=== PATIENT | female | born 1950 | race Caucasian/White ===

== ENCOUNTER → 2016-07-10 14:28 | Outpatient (CLI) | payer BC ==
[2016-01-21 06:49] VITALS: BMI 26.6
[~2016-07-10 14:28] MED LIST: ASPIRIN325 MG PO; CALTRATE-600600 MG PO; CARDIZEM CD180 MG PO; CRESTOR10 MG PO; HYDROCODONE-APA1 TAB PO; KLOR-CON M2020 MEQ PO; LASIX40 MG PO; LIPITOR40 MG PO; LODINE400 MG PO; MULTI-DAY VITAM1 TAB PO; PLAVIX75 MG PO; PREMARIN0.625 MG PO; PRILOSEC20 MG PO; PROZAC20 MG PO; TIROSINT125 MCG PO; VITAMIN D250000 UNIT PO; VITAMIN E PO
== END | disposition home or self-care (01) ==
LOC: D.MAMMO 07-07 10:45
DX: Z12.31 Encounter for screening mammogram for malignant neoplasm of breast (principal)

== ENCOUNTER → 2016-07-10 16:18 | Outpatient (CLI) | payer BC ==
[2016-01-21 06:49] VITALS: BMI 26.6
== END | disposition home or self-care (01) ==
LOC: D.MAMMO 12:00
DX: R92.8 Other abnormal and inconclusive findings on diagnostic imaging of breast (principal)

== ENCOUNTER → 2016-07-12 08:28 | Outpatient (CLI) | payer BC ==
[2016-01-21 06:49] VITALS: BMI 26.6
== END | disposition home or self-care (01) ==
LOC: D.US 08:28
DX: R92.2 Inconclusive mammogram (principal)

== ENCOUNTER 2017-03-14 12:05 | Day surgery (SDC) | payer BC ==
[~2017-03-14] VITALS: Ht 157.5 cm; Wt 70.0 kg
--- NOTE | ~2017-03-14 | OP ---
PATIENT NAME: BARBY CUELLAR MEDICAL RECORD: [id number] :48 LOCATION:[facility] ADMISSION DATE: SURGEON: MONICA SCHERER DO DATE OF OPERATION: 03/14/2017 PROCEDURE: Colonoscopy. INDICATIONS FOR PROCEDURE: Colorectal cancer screening. SCOPE: Olympus video pediatric colonoscope. MEDICATIONS: Propofol 600 mg IV per anesthesia. WITHDRAWAL TIME: 10 minutes. ESTIMATED BLOOD LOSS: None. COMPLICATIONS: None. FINDINGS: Informed consent was given. The patient was made comfortable with the above medication. After reaching an adequate level of sedation by slow IV push, the patient was placed on her left side. A digital rectal examination was performed and revealed a skin tag from a previous hemorrhoid. He was otherwise normal. The endoscope was then advanced under direct visualization through the rectum to the terminal ileum. The scope was slowly withdrawn and the mucosa was carefully examined. The prep quality was good. There were no polyps visualized on today's examination. No diverticula were directly seen. Retroflexion was performed in the rectum with visualization of grade I nonbleeding internal hemorrhoids. The endoscope was completely withdrawn from the patient. The patient tolerated the procedure well and there were no complications. IMPRESSION: Grade I internal hemorrhoids, which were not bleeding. PLAN AND RECOMMENDATIONS: 1. Discharge home when recovery parameters are met. 2. High fiber diet. 3. Continue current medications. 4. Recall colonoscopy in 7-10 years. TRANSINT:[id number] Voice Confirmation ID: [id number] DOCUMENT ID: [id number] MONICA SCHERER DO at 1848 CC: [id number] DICTATION DATE: 03/14/17 1603 MORNING SHOW [place] PRODUCER: 03/14/17 1754 [facility] 03/14/17 [facility] [address] [id number]
[2017-03-14 13:44] VITALS: BP 140/76; Ht 157.5 cm; Wt 70.0 kg
[2017-03-14 13:45] LABS: BASOPHILS 0.3 % (0-2); EOSINOPHILS 0.3 % (0-7); HEMATOCRIT 35.9 % (36.0-48.0); HEMOGLOBIN 12.3 g/dL (12-16); IMMATURE GRANULOCYTES 0.3 % (0-5); LYMPHOCYTES 24.4 % (15-50); MCH 31.6 pg (26.0-34.0); MCHC 34.3 g/dL (31.0-37.0); MCV 92.3 fL (80.0-100.0); MEAN PLATELET VOLUME 9.5 fL (7.4-10.4); MONOCYTES 6.9 % (2-11); NEUTROPHILS 67.8 % (40-80); PLATELET COUNT 260 10x3/uL (130-400); RBC 3.89 10x6/uL (4.00-5.40); RDW 12.5 % (11.5-14.5); WBC 6.4 10x3/uL (4.8-10.8)
[2017-03-14 13:51] LABS: CALC OSMOLALITY 267 mosm/kg (275-300); CALCIUM 8.5 mg/dL (8.5-10.1); CARBON DIOXIDE 26.4 mmol/L (21.0-32.0); CHLORIDE - SERUM 100 mmol/L (98-107); CREATININE - SERUM 0.7 mg/dL (0.6-1.3); GLUCOSE 91 mg/dL (74-106); POTASSIUM - SERUM 4.1 mmol/L (3.5-5.1); SODIUM 135 mmol/L (136-145); UREA NITROGEN 8 mg/dL (7-18); eGFR NON AFRICAN AMERICAN 88 mL/min (90-120)
== END 2017-03-14 17:00 | disposition home or self-care (01) ==
LOC: D.OPS 12:05
PROVIDERS: Anesthesiology
DX: Z12.11 Encounter for screening for malignant neoplasm of colon (principal); E03.9 Hypothyroidism, unspecified; Z01.812 Encounter for preprocedural laboratory examination; K64.0 First degree hemorrhoids

== ENCOUNTER → 2017-05-10 12:07 | Outpatient (CLI) | payer BC ==
[2017-03-14 13:44] VITALS: BMI 28.2
--- NOTE | ~2017-05-10 | EC ---
PATIENT:BARBY CUELLAR DATE OF SERVICE: 05/10/17 SEX: F MEDICAL RECORD: [id number] DATE OF : 48 LOCATION:D.[facility] AGE OF PATIENT: 67 ADMISSION DATE: 05/10/17 REFERRING PHYSICIAN: INTERPRETING PHYSICIAN: RADHA DAVIS MD ECHOCARDIOGRAM REPORT ECHO CHARGES 4 ECHO COMPLETE CLINICAL DIAGNOSIS: ABN EKG,CHEST PAIN ECHOCARDIOGRAPHIC MEASUREMENTS (adult normal given) AC root (d.<3.7cm) 3.0 cm LV Septum d (<1.2 cm> 1.3 cm Valve Excursion 1.6 cm LV Septum (systole) 1.6 cm Left Atria (s.<4.0cm> 3.2 cm LVPW d(<1.2cm) 1.4 cm RV (d.<2.3cm) 3.8 cm LVPW (sytole) 1.5 cm LV diastole(<5.6CM) 3.9 cm MV E-F(>70mm/sec) cm LV systole 2.87 cm LVOT Diameter 1.8 cm MV exc.(>10mm) 1.6 cm Est.ejection fraction (50-75%) % Pericardial Effusion N DOPPLER: LVIT cm/sec A 93.0 cm/sec E 87.0 cm/sec LA cm/sec RVSP 35 mmHg LVOT 106 cm/sec AOP1/2T m/s Asc. Ao 131 cm/sec RVOT 83 cm/sec RA cm/sec PA 123 cm/sec AV Gradient Peak 6.86 mmHg AV Mean 3.07 mmHg AV Area 1.8 cm MV Gradient Peak 4.23 mmHg MV Mean 1.88 mmHg MV Area cm COMMENTS: Wood Floor Refinisher: Ml TENA Legal Instructor: Laurent Daivs TAPE# PACS DATE OF SERVICE: 05/10/2017 FINDINGS: 1. Left ventricular chamber size is within normal limits. Left ventricular systolic function is normal. Overall ejection fraction is estimated at 60%. 2. Left atrium, right atrium, and right ventricular chamber sizes are within normal limit. 3. Valvular structures have normal structure and motion. 4. Doppler interrogation reveals mild mitral regurgitation and mild tricuspid regurgitation. No other valvular insufficiency or stenosis. ECHOCARDIOGRAM REPORT [id number] BARBY CUELLAR 5. No evidence of pericardial effusion or left ventricular thrombus. TRANSINT:[id number] Voice Confirmation ID: [id number] DOCUMENT ID: [id number] RADHA DAVIS MD at 1153 CC: [id number] DICTATION DATE: 05/16/17 1229 AUDIOPROSTHOLOGIST: 05/16/17 1240 DEP CLI 05/10/17 [place] [id number]
== END | disposition home or self-care (01) ==
LOC: D.ECHO 12:07
DX: I44.0 Atrioventricular block, first degree (principal); R07.9 Chest pain, unspecified

== ENCOUNTER → 2018-01-01 19:34 | Outpatient (CLI) | payer BC ==
[2017-03-14 13:44] VITALS: BMI 28.2
== END | disposition home or self-care (01) ==
LOC: D.MAMMO 11:45
DX: Z12.31 Encounter for screening mammogram for malignant neoplasm of breast (principal)

== ENCOUNTER 2018-03-08 12:35 | Outpatient (CLI) | payer BC ==
[~2018-03-08] VITALS: Ht 157.5 cm; Wt 69.1 kg
--- NOTE | ~2018-03-08 | HEMODYNAMI ---
PATIENT:BARBY CUELLAR MEDICAL RECORD: [id number] : 48 LOCATION:[facility] ADMISSION DATE: 03/08/18 Generatedon:03/08/201816:18 Patient name: BARBY CUELLAR Patient #: [id number] SSN: DO B: 1950 Date of study: 03/08/2018 Page: Of Hemodynamic Procedure Report Patient Data Patient Demographics Procedure consent was obtained First Name: BARBY Gender: Female Last Name: POLO : 1950 Middle Initial: JESUS Age: 67 year(s) Patient #: [id number] Race: Unknown Additional ID: [id number] Contact details Address: [address] [place] [address] rd State: [place] City: [place] Zip code: [address] Past Medical History Allergies Allergen Reaction Date Comments Reported Other allergy 03/08/2018 Demerol Admission Admission Data Admission Date: 03/08/2018 Admission Time: 12:35 Lab Results Lab Result Date: 03/08/2018 Lab Result Time: 0:00 Biochemistry Name Units Result Min Max BUN mg/dl 27 --(----)-* 7 18 Creatinine mg/dl 1.1 --(--*-)-- 0.6 1.3 CBC Name Units Result Min Max Hemoglobin g/dl 16.1 --(--*-)-- 13.5 17.5 Procedure Procedure Types Cath Procedure Diagnostic Procedure [facility] w/Coron[facility] Procedure Description Procedure Date Procedure Date: 03/08/2018 Procedure Start Time: 16:07 Procedure End Time: 16:15 Procedure Staff Name Function Jose Davis MD Performing Physician Laurie Harding RT Monitor Lesley Vital RT Scrub David Almanzar RN Nurse Procedure Data Cath Procedure Fluoroscopy Diagnostic fluoroscopy Total fluoroscopy Time: 0.9 time: 0.9 min min Diagnostic fluoroscopy Total fluoroscopy dose: 170 dose: 170 mGy mGy Contrast Material Contrast Material Type Amount (ml) Isovue 300 31 Entry Location Entry Primary Successful Side Size Upsize Upsize Entry Closure Winn ccessful Closure Location (Fr) 1 (Fr) 2 (Fr) Remarks Device Remarks Radial Right 6 Fr Mechanical artery Short Compression Estimated blood loss: 10 ml Diagnostic catheters Device Type Used For End Catheter Placement DIAGNOSTIC Eaton 110cm 5 Procedure Fr catheter ([id number]) Procedure Complications No complications Procedure Medications Medication Administration Route Dosage Oxygen etCO2 Nasal cannula 2 l/min Lidocaine 2% added to field 20 Heparin Flush Bag added to field 2 bags (1000units/500ml NS) 0.9% NaCl I.V. 100 ml/hr Radial Cocktail I.A. 1 syringe (Verapomil 2mg/Nitro 400mcg/Heparin 1500units) Versed I.V. 2 mg Fentanyl I.V. 100 mcg Versed I.V. 2 mg Fentanyl I.V. 100 mcg Versed I.V. 2 mg Fentanyl I.V. 100 mcg Versed I.V. 1 mg Fentanyl I.V. 50 mcg Zofran I.V. 4 mg Hemodynamics Rest HGB: 16.1 (g/dl) Heart Rate: 73 (bpm) Pressure Samples Time Site Value (mmHg) Purpose Heart Use Rate(bpm) 16:09 LV 142/-6,1 Snapshot 87 16:09 AO 157/88(121) Pullback 90 16:09 LV 172/9,56 Pullback 90 Gradients Valve Time Site 1 Site 2 Mean SEP/DFP Peak To Heart Use (mmHg) (sec/min) Peak Rate (mmHg) (bpm) Aortic 16:09 LV AO 11 20 15 90 172/9,56 157/88(121) Calculations Valve P-P Mean Valve Index Valve Source Name Gradient Area Flow (cm2) Aortic 15 11 15 11 Snapshots Pre Cath Intra NCS Post Cath Vital Signs Time Heart Resp SPO2 etCO2 NIBP (mmHg) Rhythm Pain Sedation Rate (ipm) (%) (mmHg) Status Level (bpm) 15:43:44 76 12 100 29.3 210/99(176) NSR 0 (11) 10(A) , No pain 15:48:08 74 13 100 23.3 206/100(145) NSR 0 (11) 10(A) , No pain 15:52:32 73 23 99 35.4 199/94(151) NSR 0 (11) 10(A) , No pain 15:56:54 70 19 99 37.7 170/97(151) NSR 0 (11) 10(A) , No pain 16:02:14 76 18 98 34.6 189/96(143) NSR 0 (11) 10(A) , No pain 16:06:34 73 16 96 33.9 159/88(124) NSR 0 (11) 10(A) , No pain 16:10:44 94 17 100 33.9 172/93(136) NSR 0 (11) 10(A) , No pain 16:14:58 91 14 96 36.1 164/88(120) NSR 0 (11) 10(A) , No pain 16:16:57 96 14 98 38.4 171/86(118) NSR 0 (11) 10(A) , No pain Medications Time Medication Route Dose Verified Delivered Reason Notes Effectiveness by by 15:42:59 Oxygen etCO2 2 l/min Jose Buffie used for Nasal Ryan Almanzar RN procedure cannula 15:43:11 Lidocaine 2% added 20ml Jose Jose for local to vial Ryan Davis MD anesthetic field 15:43:17 Heparin Flush added 2 bags Jose Jose used for Bag to Ryan Davis MD procedure (1000units/500ml field NS) 15:43:25 0.9% NaCl I.V. 100 Josenahun Hernandez Per ml/hr Ryan Almanzar RN physician 15:50:50 Radial Cocktail I.A. 1 Josenahun Garcia for (Verapomil syringe Ryan Davis MD vasodilation 2mg/Nitro 400mcg/Heparin 1500units) 16:00:32 Zofran I.V. 4 mg Jose Buffie Per Ryan Almanzar RN physician 16:04:41 Versed I.V. 2 mg Jose Buffie for sedation Ryan Almanzar RN 16:04:47 Fentanyl I.V. 100 mcg Jose Buffie for sedation Ryan Almanzar RN 16:07:26 Versed I.V. 2 mg Jose Buffie for sedation Ryan Almanzar RN 16:07:29 Fentanyl I.V. 100 mcg Jose Buffie for sedation Ryan Almanzar RN 16:10:37 Versed I.V. 2 mg Jose Buffie for sedation Ryan Almanzar RN 16:10:41 Fentanyl I.V. 100 mcg Jose Buffie for sedation Ryan Almanzar RN 16:14:06 Versed I.V. 1 mg Jose Hernandez for sedation Ryan Almanzar RN 16:14:11 Fentanyl I.V. 50 mcg Jose Hernandez for sedation Ryan Almanzar RN Procedure Log Time Note 15:26:20 Diagnostic Cath Status : Elective 15::46 David Almanzar RN sent for patient. Start room use. 15:26:46 Time tracking: Regular hours (M-F 7:00 - 5:00) 15:26:51 Plan of Care:Hemodynamics will remain stable., Cardiac rhythm will remain stable., Comfort level will be maintained., Respiratory function will remain adequate., Patient/ family verbilizes understanding of procedure., Procedure tolerated without complication., Recovers from procedure without complications.. 15:34:57 Patient received from Pre/Post Procedure Room to CCL 2 Alert and oriented. Tansferred to table in Supine position. 15:34:58 Warm blankets applied, and tori hugger turned on for patient comfort. 15:34:59 Correct patient and procedure confirmed by team. 15:35:01 Signed procedure consent form obtained from patient. 15:35:02 ECG and BP/O2 sat monitors applied to patient. 15:41:37 Vital chart was started 15:41:40 Baseline sample Acquired. 15:41:44 Rhythm: sinus rhythm 15:41:47 Full Disclosure recording started 15:41:54 H&P Date Dictated: 03/08/2018 Within 30 days and on chart., H&P Addendum completed by physician on day of procedure. (MUST COMPLETE FOR ALL OUTPATIENTS). 15:41:55 Pre-procedure instructions explained to patient. 15:41:57 Family in waiting room. 15:41:59 Patient NPO since Midnight. 15:42:17 Patient allergic to Other allergyDemerol 15:42:26 Is the patient allergic to Iodine/contrast media? No. 15:42:29 Was the patient premedicated? No 15:42:32 Is patient on blood thinner?No 15:42:37 ACC The patient was administered the following blood thiners within the last 24 hours: ACCAspirin 15:42:59 Oxygen 2 l/min etCO2 Nasal cannula was administered by David Almanzar RN; used for procedure; 15:43:11 Lidocaine 2% 20ml vial added to field was administered by Jose Davis MD; for local anesthetic; 15:43:11 Patient diabetic? No. 15:43:15 Snore? No 15:43:17 Heparin Flush Bag (1000units/500ml NS) 2 bags added to field was administered by Jose Davis MD; used for procedure; 15:43:17 Sleep apnea? No 15:43:19 Deviated septum? No 15:43:23 Dentures? No ? 15:43:25 0.9% NaCl 100 ml/hr I.V. was administered by David Almanzar RN; Per physician; 15:43:30 Patient pain scale 0/10 ?. 15:43:37 IV patent on arrival in left antecubital with 0.9% NaCl at [facility]. 15:43:43 Lab results completed and on chart. 15:43:47 Right Radial & Right Groin area was prepped with chlora-prep and draped in sterile fashion 15:43:50 Alarms reviewed by R. N. 15:43:52 Sharps counted by scrub and verified by R.N. 15:43:59 Use device set Radial Dx or PCI 15:44:01 ACIST Syringe (57509) opened to sterile field. 15:44:02 Medline Cath Pack ([id number]) opened to sterile field. 15:44:03 Bag Decanter (2002) opened to sterile field. 15:44:03 DIAGNOSTIC WIRE .035 260cm J wire (361240) opened to sterile field. 15:44:04 ACIST Hand Control (85714) opened to sterile field. 15:44:04 ACIST Manifold (83662) opened to sterile field. 15:44:05 Tegaderm 4 x 4 (1626W) opened to sterile field. 15:44:06 MBrace Wrist Support ([id number]) opened to sterile field. 15:44:09 TR BAND Standard ([id number]) opened to sterile field. 15:44:11 SHEATH 6FR Slender (80-1060) opened to sterile field. 15:50:50 Radial Cocktail (Verapomil 2mg/Nitro 400mcg/Heparin 1500units) 1 syringe I.A. was administered by Jose Davis MD; for vasodilation; 15:59:12 Zero performed for pressure channel P1 16:00:32 Zofran 4 mg I.V. was administered by David Almanzar RN; Per physician; 16::57 Lab Result : BUN 27 mg/dl 16::57 Lab Result : Creatinine 1.1 mg/dl 16::57 Lab Result : Hemoglobin 16.1 g/dl 16:02:28 Physician arrived 16:03:17 --------ALL STOP TIME OUT------ 16:03:18 Final Timeout: patient, procedure, and site verified with staff and physician. All members of the team are in agreement. 16:03:22 Right Radial & Right Groin site verified by team. 16:03:27 Physical assessment completed. ASA score P 2 - A patient with mild systemic disease as per Jose Davis MD. 16::32 Sedation plan: IV Moderate Sedation Medication:Versed, Fentanyl 16:04:41 Versed 2 mg I.V. was administered by David Almanzar RN; for sedation; 16:04:47 Fentanyl 100 mcg I.V. was administered by David Almanzar RN; for sedation; 16:07:26 Versed 2 mg I.V. was administered by David Almanzar RN; for sedation; 16:07:29 Fentanyl 100 mcg I.V. was administered by David Almanzar RN; for sedation; 16:07:42 Procedure started. 16:07:52 Local anesthetic to right radial artery with Lidocaine 2% by Jose Davis MD.INITIAL ACCESS ONLY 16:08:09 A 6 Fr Short sheath was inserted into the Right Radial artery 16:08:59 A DIAGNOSTIC Eaton 110cm 5 Fr catheter (109436) was advanced over the wire and used for Procedure. 16:10:07 LV angiography performed. 16:10:15 EF : 60 % 16:10:24 LCA angiography performed. 16:10:37 Versed 2 mg I.V. was administered by David Almanzar RN; for sedation; 16:10:41 Fentanyl 100 mcg I.V. was administered by David Almanzar RN; for sedation; 16:10:53 RCA angiography performed. 16:11:11 Catheter removed. 16:12:34 Sheath removed intact; hemostasis achieved with Mechanical Compression to the Right Radial artery. 16:12:37 Procedure ended.(Physican Out) 16:12:48 Fluoroscopy time 00.90 minutes. 16:12:52 Flurop Dose total: 170 16:12:52 Fluoroscopy dose: 170 mGy 16:12:56 Contrast amount:Isovue 300 31ml. 16:12:58 Sharps counted by scrub and verified by R.N. 16:13:01 TR band inflated with 10cc of air. 16:13:04 Insertion/operative site no bleeding no hematoma. 16:13:14 Post right radial artery:stable 16:14:06 Versed 1 mg I.V. was administered by David Almanzar RN; for sedation; 16:14:09 Post-procedure physical assessment completed. ASA score P 2 - A patient with mild systemic disease as per Jose Davis MD. 16:14:11 Fentanyl 50 mcg I.V. was administered by David Almanzar RN; for sedation; 16:14:21 Estimated blood loss: 10 ml 16:14:25 Post procedure instruction explained to patient.Patient verbalizes understanding. 16:14:34 Procedure and supply charges have been captured, reviewed, submitted and are correct. 16:15:03 Procedure Complication : No complications 16:15:06 Vital chart was stopped 16:15:07 See physician's report for complete and final results. 16:15:08 Report given to Pre/Post Procedure Room. 16:15:14 Patient transfered to Pre/Post Procedure Room with Stretcher. 16:15:17 Procedure ended. 16:15:18 Full Disclosure recording stopped 16:15:21 End room use (Document Last) 16:15:58 Post procedure rhythm: sinus tachycardia Device Usage Item Name Manufacture Quantity Catalog Hospital Part Current Minimal Lot# / Number Charge Number Stock Stock Serial# Code ACIST Acist 1 20474 547686 917948 800082 20 Syringe Medical (64819) Systems Inc Medline Medline 1 [id number] 822520 81903 533007 5 Cath Pack ([id number]) Bag Microtek 1 2001S 980571 63079 576797 5 Decanter Medical Inc. () DIAGNOSTIC St Ever 1 162272 579841 349090 043571 30 WIRE .035 260cm J wire (894619) ACIST Hand Acist 1 99532 469499 346444 964885 5 Control Medical (33053) Systems Inc ACIST Acist 1 00491 510958 257618 841043 5 Manifold Medical (49570) Systems Inc Tegaderm 4 3M 1 1626W 270392 238566 948274 5 x 4 (1626W) MBrace Advanced 1 140-0250-00 775854 27521 563111 5 Wrist Vascular Support Dynamics ([id number]) TR BAND Terumo 1 [id number] 358368 653932 574031 40 Standard ([id number]) SHEATH 6FR Terumo 1 [id number] 576743 132539 597511 5 Slender (801060) DIAGNOSTIC Terumo 1 40-7380 918698 149536 797415 5 Eaton 110cm 5 Fr catheter (455277) Signature Audit [place] Stage Time Signature Unsigned Intra-Procedure 03/08/2018 Laurie Harding 4:18:30 PM RT(R) Signatures Monitor : Laurie Harding Signature : RT Date : Time : [facility] [address] [place] [address]
[2018-03-08 12:01] LABS: BASOPHILS 0.3 % (0-2); EOSINOPHILS 1.1 % (0-7); HEMATOCRIT 37.6 % (36.0-48.0); HEMOGLOBIN 12.8 g/dL (12-16); IMMATURE GRANULOCYTES 0.3 % (0-5); LYMPHOCYTES 29.9 % (15-50); MCH 32.4 pg (26.0-34.0); MCV 95.2 fL (80.0-100.0); MEAN PLATELET VOLUME 10.1 fL (7.4-10.4); MONOCYTES 11.1 % (2-11); NEUTROPHILS 57.3 % (40-80); PLATELET COUNT 287 10x3/uL (130-400); RBC 3.95 10x6/uL (4.00-5.40); RDW 12.8 % (11.5-14.5); WBC 6.6 10x3/uL (4.8-10.8)
[2018-03-08 12:02] LABS: CALC OSMOLALITY 272 mosm/kg (275-300); CARBON DIOXIDE 26.7 mmol/L (21.0-32.0); CHLORIDE - SERUM 102 mmol/L (98-107); CREATININE - SERUM 0.7 mg/dL (0.6-1.3); GLUCOSE 94 mg/dL (74-106); POTASSIUM - SERUM 5.3 mmol/L (3.5-5.1); SODIUM 137 mmol/L (136-145); UREA NITROGEN 11 mg/dL (7-18); eGFR NON AFRICAN AMERICAN 88 mL/min (90-120)
[2018-03-08] MEDS ORDERED: LEVOXYL75 MCG PO (13:56)
[2018-03-08] MEDS ORDERED: CALCIUM PO (13:57)
[2018-03-08] MEDS ORDERED: VITAMIN B-122500 MCG PO (13:58)
[2018-03-08 14:11] VITALS: BP 185/73; Ht 157.5 cm; Wt 69.1 kg
--- NOTE | 2018-03-08 16:45 | NUR ---
PATIENT AWAKE, DRINKING WATER. VSS ON ROOM AIR. RIGHT TR BAND IN PLACE, NO BLEEDING OR HEMATOMA NOTED.
--- NOTE | 2018-03-08 17:15 | NUR ---
PATIENT EATING TURKEY SANDWICH. VSS ON ROOM AIR. RIGHT TR BAND IN PLACE, NO BLEEDING OR HEMATOMA.
--- NOTE | 2018-03-08 17:30 | NUR ---
BEGAN AIR REMOVAL PROTOCOL FOR TR BAND, NO BLEEDING OR HEMATOMA NOTED. VSS ON ROOM AIR.
--- NOTE | 2018-03-08 18:00 | NUR ---
IV REMOVED. EDUCATION REGARDING DISCHARGE INSTRUCTIONS GIVEN TO PATIENT AND FAMILY MEMBER, ALL QUESTIONS ANSWERED. VSS ON ROOM AIR. RIGHT TR BAND REMOVED, NO BLEEDING OR HEMATOMA NOTED.
--- NOTE | 2018-03-08 18:15 | NUR ---
PATIENT TRANSPORTED VIA WHEELCHAIR TO CAR WITH FAMILY MEMBER DRIVING. ALL BELONGINGS WITH PATIENT.
--- NOTE | 2018-03-08 18:15 | NUR ---
PATIENT TRANSPORTED VIA WHEELCHAIR TO CAR WITH FAMILY MEMBER DRIVING, ALL BELONGINGS WITH PATIENT. REPORT CALLED TO MOLLY.
--- NOTE | 2018-03-11 14:36 | OP ---
PATIENT NAME: BARBY CUELLAR MEDICAL RECORD: [id number] :48 LOCATION:D.[facility] ADMISSION DATE: SURGEON: RADHA BOJORQUEZ MD DATE OF OPERATION: 03/08/2018 PROCEDURES: 1. Left heart catheterization. 2. Selective coronary angiography. 3. Left ventriculogram. INDICATION: Chest pain compatible with angina, dysrhythmia. PROCEDURE IN DETAIL: After informed consent was obtained, after detailed description of risks, benefits as well as alternative therapies, the patient elected to proceed with angiogram and heart catheterization. The right radial area was prepped and draped in normal sterile fashion. Right radial artery was cannulated via modified Seldinger technique with the placement of 5-Algerian sheath. All catheters exchanged through this sheath. FINDINGS: Left ventriculogram was performed in standard 30-degree VALENZUELA view, reveals good cardiac wall motion throughout all segments. Overall ejection fraction estimated at 60%. SELECTIVE CORONARY ANGIOGRAPHY: Left main, left anterior descending, left circumflex, right coronary artery are all smooth-walled vessels with no angiographic evidence of coronary artery disease. OVERALL IMPRESSION: 1. No angiographic evidence of coronary artery disease. 2. Normal left heart pressures. 3. Normal left ventricular systolic function. Chest pain is noncardiac in etiology. Center medical management and treatment of the dysrhythmia. TRANSINT:[id number] Voice Confirmation ID: [id number] DOCUMENT ID: [id number] RADHA BOJORQUEZ MD at 1436 CC: [id number] DICTATION DATE: 03/08/18 1615 EXPLOITATION ANALYST: 03/09/18 0113 DEP CLI 03/08/18 [place] [id number]
== END 2018-03-08 18:15 ==
LOC: D.CATH 12:35
PROVIDERS: Internal Medicine Interventional Cardiology
DX: R07.89 Other chest pain (principal); I49.9 Cardiac arrhythmia, unspecified

== ENCOUNTER → 2018-05-28 15:20 | Outpatient (CLI) | payer BC ==
[2018-03-08 14:11] VITALS: BMI 27.8
[~2018-05-28 15:20] MED LIST changes: +CALCIUM PO; +LEVOXYL75 MCG PO; +VITAMIN B-122500 MCG PO
== END | disposition home or self-care (01) ==
LOC: D.CT 15:00
PROVIDERS: ATTEND Family Medicine
DX: R51 Headache (principal)

== ENCOUNTER 2018-12-13 10:28 | Emergency (ER) | payer SELFPAY ==
[~2018-12-13] VITALS: Ht 157.5 cm; Wt 2.2 kg
[2018-12-13 10:34] VITALS: Ht 157.5 cm; Wt 2.2 kg
[2018-12-13 10:58] LABS: BASOPHILS 0.3 % (0-2); EOSINOPHILS 0.5 % (0-7); HEMOGLOBIN 12.7 g/dL (12-16); IMMATURE GRANULOCYTES 0.3 % (0-5); LYMPHOCYTES 26.8 % (15-50); MCH 31.8 pg (26.0-34.0); MCHC 34.3 g/dL (31.0-37.0); MCV 92.5 fL (80.0-100.0); MEAN PLATELET VOLUME 9.2 fL (7.4-10.4); NEUTROPHILS 61.1 % (40-80); PLATELET COUNT 290 10x3/uL (130-400); RDW 12.6 % (11.5-14.5); WBC 5.9 10x3/uL (4.8-10.8)
[2018-12-13 11:06] LABS: APPEARANCE CLEAR (CLEAR); BILIRUBIN NEGATIVE (NEGATIVE); COLOR STRAW (YELLOW); GLUCOSE NEGATIVE (NEGATIVE); KETONE NEGATIVE (NEGATIVE); NITRITE NEGATIVE (NEGATIVE); PROTEIN NEGATIVE (NEGATIVE); SPECIFIC GRAVITY 1.005 (1.005-1.020); UROBILINOGEN NORMAL (NORMAL)
[2018-12-13 11:11] LABS: APTT 27.7 SECONDS (22.8-39.4); INR 0.95 (0.85-1.17); PROTIME 12.2 SECONDS (11.6-15.0)
[2018-12-13 11:15] LABS: ALBUMIN 4.2 g/dL (3.4-5.0); ALKALINE PHOSPHATASE 81 U/L (46-116); ALT (SGPT) 43 U/L (10-68); BILIRUBIN - TOTAL 0.46 mg/dL (0.2-1.3); CALC OSMOLALITY 274 mosm/kg (275-300); CALCIUM 9.7 mg/dL (8.5-10.1); CHLORIDE - SERUM 98 mmol/L (98-107); CREATININE - SERUM 0.7 mg/dL (0.6-1.3); GLUCOSE 112 mg/dL (74-106); POTASSIUM - SERUM 4.5 mmol/L (3.5-5.1); PROTEIN - SERUM 7.9 g/dL (6.4-8.2); SODIUM 137 mmol/L (136-145); UREA NITROGEN 12 mg/dL (7-18); eGFR NON AFRICAN AMERICAN 88 mL/min (90-120)
[2018-12-13] MEDS ORDERED: ACETAMINOPHEN500 M1 PO (11:56)
[2018-12-13] MEDS ORDERED: IBUPROFEN800 MG PO (11:56)
[2018-12-13] MEDS ORDERED: CYCLOBENZAPRINE10 MG PO (11:56)
[2018-12-13 12:26] VITALS: BP 183/69
== END 2018-12-13 12:29 | disposition home or self-care (01) ==
LOC: D.ER 10:28
PROVIDERS: Family Medicine
DX: M54.5 Low back pain (principal); M54.2 Cervicalgia; V89.2XXA Person injured in unspecified motor-vehicle accident, traffic, initial encounter

== ENCOUNTER → 2018-12-24 15:51 | Outpatient (CLI) | payer BC ==
[~2018-12-24 15:51] MED LIST changes: +ACETAMINOPHEN500 M1 PO; +CYCLOBENZAPRINE10 MG PO; +IBUPROFEN800 MG PO
== END | disposition home or self-care (01) ==
LOC: D.CT 12-20 14:30
PROVIDERS: ATTEND Family Medicine
DX: R42 Dizziness and giddiness (principal)

== ENCOUNTER → 2019-01-17 12:43 | Outpatient (CLI) | payer BC | END | disposition home or self-care (01) | LOC: D.MRI 12:43 | PROVIDERS: ATTEND Neurological Surgery | DX: M54.12 Radiculopathy, cervical region (principal) ==

== ENCOUNTER → 2019-02-14 14:28 | Outpatient (CLI) | payer BC | END | disposition home or self-care (01) | LOC: D.US 14:28 | PROVIDERS: ATTEND Family Medicine | DX: R42 Dizziness and giddiness (principal) ==

== ENCOUNTER 2019-02-20 15:45 | Emergency (ER) | payer BC, MEDICARE ==
[~2019-02-20] VITALS: Ht 157.5 cm; Wt 73.6 kg
[2019-02-20 15:53] VITALS: Ht 157.5 cm; Wt 73.6 kg
[2019-02-20 16:30] LABS: BASOPHILS 0.5 % (0-2); EOSINOPHILS 0.8 % (0-7); HEMATOCRIT 36.7 % (36.0-48.0); HEMOGLOBIN 12.5 g/dL (12-16); IMMATURE GRANULOCYTES 0.2 % (0-5); LYMPHOCYTES 39.3 % (15-50); MCH 31.9 pg (26.0-34.0); MCHC 34.1 g/dL (31.0-37.0); MCV 93.6 fL (80.0-100.0); MEAN PLATELET VOLUME 9.4 fL (7.4-10.4); MONOCYTES 9.8 % (2-11); NEUTROPHILS 49.4 % (40-80); PLATELET COUNT 282 10x3/uL (130-400); RBC 3.92 10x6/uL (4.00-5.40); RDW 12.5 % (11.5-14.5); WBC 6.2 10x3/uL (4.8-10.8)
[2019-02-20 16:39] LABS: CALC OSMOLALITY 269 mosm/kg (275-300); CALCIUM 9.6 mg/dL (8.5-10.1); CARBON DIOXIDE 29.7 mmol/L (21.0-32.0); CHLORIDE - SERUM 97 mmol/L (98-107); CREATININE - SERUM 0.9 mg/dL (0.6-1.3); GLUCOSE 103 mg/dL (74-106); INR 1.02 (0.85-1.17); POTASSIUM - SERUM 4.2 mmol/L (3.5-5.1); PROTIME 12.9 SECONDS (11.6-15.0); SODIUM 134 mmol/L (136-145); UREA NITROGEN 17 mg/dL (7-18); eGFR NON AFRICAN AMERICAN 66 mL/min (90-120)
[2019-02-20 16:56] LABS: ALBUMIN 4.2 g/dL (3.4-5.0); ALKALINE PHOSPHATASE 90 U/L (46-116); ALT (SGPT) 39 U/L (10-68); BILIRUBIN - TOTAL 0.26 mg/dL (0.2-1.3); CKMB 0.6 U/L (0.0-3.6); CREATINE KINASE 51 UL (21-215); PROTEIN - SERUM 7.5 g/dL (6.4-8.2); THYROID STIMULATING HORMONE 3.35 uIU/mL (0.36-3.74); TROPONIN-I < 0.017 ng/mL (0.000-0.060)
[2019-02-20 18:35] VITALS: BP 146/71
== END 2019-02-20 18:36 | disposition home or self-care (01) ==
LOC: D.ER 15:45
PROVIDERS: Family Medicine
DX: G45.9 Transient cerebral ischemic attack, unspecified (principal); R29.810 Facial weakness; R41.0 Disorientation, unspecified; E07.9 Disorder of thyroid, unspecified; I48.91 Unspecified atrial fibrillation

== ENCOUNTER → 2019-09-15 14:13 | Outpatient (CLI) | payer BC ==
[2019-02-20 15:53] VITALS: BMI 29.7
== END | disposition home or self-care (01) ==
LOC: D.HCCECHO 14:13
PROVIDERS: ATTEND Internal Medicine Cardiovascular Disease
DX: I10 Essential (primary) hypertension (principal)

== ENCOUNTER 2019-12-23 11:30 | Outpatient (CLI) | payer BC ==
[2019-02-20 15:53] VITALS: BMI 29.7
== END 2019-12-23 11:35 | disposition home or self-care (01) ==
LOC: D.MAMMO 11:30
PROVIDERS: ATTEND Family Medicine
DX: Z12.31 Encounter for screening mammogram for malignant neoplasm of breast (principal)

== ENCOUNTER 2019-12-24 17:00 | Outpatient (CLI) | payer BC ==
[2019-02-20 15:53] VITALS: BMI 29.7
== END 2019-12-24 23:59 | disposition home or self-care (01) ==
LOC: D.MAMMO 17:00
PROVIDERS: ATTEND Family Medicine
DX: R92.8 Other abnormal and inconclusive findings on diagnostic imaging of breast (principal)